=== PATIENT | male | born 1950 | race Caucasian/White ===

== ENCOUNTER 2019-04-05 16:08 | Outpatient (REF) | payer OTHER, SELFPAY ==
[2019-04-05 18:29] LABS: Abs Immature Grans 0.01 k/cumm (0.0-0.09); Absolute Basophil Count 0.04 k/cumm (0.0-0.2); Absolute Eosinophil Count 0.26 k/cumm (0.0-0.7); Absolute Lymphocyte Count 0.71 k/cumm (1.2-3.4); Absolute Monocyte Count 0.65 k/cumm (0.11-0.7); Absolute Neutrophil Count 2.94 k/cumm (1.2-6.7); Basophils % 0.9; Eosinophils % 5.6; HCT 32.8 % (40.0-50.0); HGB 10.1 g/dL (13.5-17.5); Immature Grans % 0.2; Lymphocytes % 15.4; Mean Corp. HGB Concentration 30.8 g/dL (32.0-36.0); Mean Corpuscular Hemoglobin 27.4 pg (27.0-33.0); Mean Corpuscular Volume 88.9 fL (80-95); Mean Platelet Volume 10.7 fL (8.0-11.0); Monocytes % 14.1; Neutrophils % 63.8; Platelet Count 274 x1000/uL (130-400); RBC 3.69 m/cumm (4.50-6.00); RBC Distribution Width 17.7 % (11.8-14.1); White Blood Cell Count 4.61 k/cumm (4.4-10.8)
[2019-04-05 18:47] LABS: ALT 22 U/L (12-78); AST 18 U/L (15-37); Albumin 3.2 g/dL (3.4-5.0); Alkaline Phosphatase 115 U/L (46-116); BUN 13 mg/dL (7-18); Bilirubin, Direct 0.13 mg/dL (0.00-0.20); Bilirubin, Total 0.4 mg/dL (0.2-1.0); CREATININE 0.78 mg/dL (0.70-1.30); Total Protein 7.3 g/dL (6.4-8.2)
== END 2019-04-05 16:28 ==
LOC: LBN 16:08
DX: Z79.2 Long term (current) use of antibiotics (principal); R69 Illness, unspecified
CPT/HCPCS: 80076; 84520; 82565; 85025